=== PATIENT | male | born 1995 | race African-American/Black ===

== ENCOUNTER 2016-07-20 01:07 | Emergency (ER) | payer SELFPAY ==
[~2016-07-20] VITALS: Ht 185.4 cm; Wt 115.0 kg
[~2016-07-20 01:07] MED LIST: AMOX500T PO; PRED20 PO
[2016-07-20 01:09] VITALS: BP 122/75; PULSE 98; RESP 16; TEMP 100.8; O2SAT 98
[2016-07-20] MEDS ORDERED: AMOX500T PO (01:23)
[2016-07-20] MEDS ORDERED: PRED-503 PO (01:23)
--- NOTE | 2016-07-20 01:29 | PD ---
HPI Chief Complaint: ENT Complaint Time Seen by Provider: 01:26 Travel History International Travel<30 days: No Contact w/Intl Traveler<30days: No Traveled to known affect area: No History of Present Illness HPI 20-year-old white male presents emergency Department with a 2 day history of sore throat. He has had subjective fever and chills, earache, sore throat, difficulty swallowing, and slight congestion. He denies any cough, shortness of breath, nausea, vomiting, diarrhea, abdominal pain or urinary symptoms. He states that he has had strep throat in the past and that this feels the same. He states the pain is moderate to severe with swallowing. No alleviating factors. PFSH Past Medical History Narrative Medical Strep throat Hx Anticoagulant Therapy: No Cardiovascular Problems: No Chemotherapy: No Cerebrovascular Accident: No Diabetes: No Respiratory: No Tetanus Vaccination: < 5 Years Past Surgical History Surgical History: No Previous Surgery Social History Alcohol Use: Yes Tobacco Use: No Substance Use: No Allergies-Medications (Allergen,Severity, Reaction): Coded Allergies: No Known Allergies (Unverified , 12/04/15) Reported Meds & Prescriptions Reported Meds & Active Scripts Active Amoxicillin 500 Mg Tab 1,000 Mg PO BID Deltasone (Prednisone) 20 Mg Tab 20 Mg PO TID Deltasone (Prednisone) 20 Mg Tab 20 Mg PO TID Amoxicillin 500 Mg Cap 500 Mg PO TID Review of Systems Except as stated in HPI: all other systems reviewed are Neg Physical Exam Narrative GENERAL: Well-developed, well-nourished in no acute distress. Nontoxic appearing. HEAD: Normocephalic, atraumatic. EYES: Pupils equal round and reactive. Extraocular motions intact. No scleral icterus. No injection or drainage. ENT: TMs clear without erythema. The external auditory canals clear. Nose: clear . Posterior pharynx is erythematous and moist. Positive tonsillar edema with white exudate. The right tonsil papillae is much larger than the left. There is no obvious abscess. Odor of strep. Uvula midline. Airway patent. NECK: Trachea midline.Supple, positive tender cervical and tonsillar adenopathy , moves head freely. No central bony tenderness or spasm. CARDIOVASCULAR: Regular rate and rhythm without murmurs, gallops, or rubs. RESPIRATORY: Clear to auscultation. Breath sounds equal bilaterally. No wheezes , rales, or rhonchi. GASTROINTESTINAL: Abdomen soft, non-tender, nondistended. No hepato-splenomegaly , or palpable masses. No guarding. EXTREMITIES: No clubbing, cyanosis, or edema. No joint tenderness, effusion, or edema noted. BACK: Nontender without deformity or crepitance. No flank tenderness. Data Data Last Documented VS Vital Signs Date Time Temp Pulse Resp B/P Pulse Ox O2 Delivery O2 Flow Rate FiO2 07/20/16 01:09 100.8 98 16 122/75 98 Orders Amoxicillin (Trimox) (07/20/16 01:30) Prednisone (Deltasone) (07/20/16 01:30) Acetaminophen (Tylenol) (07/20/16 01:30) MDM Medical Decision Making Medical Screen Exam Complete: Yes Emergency Medical Condition: Yes Medical Record Reviewed: Yes Differential Diagnosis MDM: High Differential diagnoses: Strep throat, viral pharyngitis, mono, peritonsillar abscess, retropharyngeal abscess, Robert's angina Narrative Course Patient will be treated for presumptive strep throat. Patient's given prednisone 40 and 1 g of amoxicillin by mouth. 1 g of Tylenol by mouth. Diagnosis Primary Impression: presumptive strep throat Patient Instructions: General Instructions Departure Forms: School Release, Please excuse from school until (free text option): No school 2 days. Tests/Procedures Additional Instructions: Rest. Force fluids. Saltwater gargles. Tylenol and Advil. Chloraseptic Severy Cepastat lozenge. Amoxicillin and prednisone. Follow-up with a primary care doctor in one week. Return to the ER if any problems. Med/Other Pt SpecificInfo: Prescription(s) given Scripts Amoxicillin 500 Mg Tab1,000 Mg PO BID #40 TAB Prov:Annette Huitron MD 07/20/16 Prednisone (Deltasone)20 Mg Tab20 Mg PO TID #15 TAB Prov:Annette Huitron MD 07/20/16 Disposition: DISCHARGE HOME Condition: Stable Malik Cunningham Jul 20, 2016 01:29
[2016-07-20] MEDS ORDERED: ACETAMINOPHEN 500 MG CPLT PO ONE (01:30)
[2016-07-20] MEDS ORDERED: AMOXICILLIN (TRIHYDRATE) 500 MG CAP PO ONE (01:30)
[2016-07-20] MEDS ORDERED: predniSONE 20 MG TAB PO ONE (01:30)
== END 2016-07-20 01:54 | disposition home or self-care (01) ==
LOC: NEPD 01:07
DX: H92.09 Otalgia, unspecified ear (principal)
CPT/HCPCS: 99284; J7512